=== PATIENT | male | born 1955 | race Caucasian/White ===

== ENCOUNTER 2019-10-07 11:33 | Day surgery (SDC) | payer MEDICARE, OTHER ==
[2019-09-30 11:15] LABS: ABSOLUTE BASOPHILS # (AUTO) 0.1 10^3/uL (0.0-0.2); ABSOLUTE EOSINOPHILS # (AUTO) 0.7 10^3/uL (0.0-0.6); ABSOLUTE LYMPHOCYTES (AUTO) 2.9 10^3/uL (0.5-4.7); ABSOLUTE MONOCYTES (AUTO) 1.2 10^3/uL (0.1-1.4); ABSOLUTE NEUT (AUTO) 5.8 10^3/uL (1.7-8.2); BASOPHILS % (AUTO) 1.2 % (0-2); EOSINOPHILS % (AUTO) 6.6 % (0-6); HEMOGLOBIN 16.3 g/dL (13.5-17.0); LYMPHOCYTES % (AUTO) 27.1 % (13-45); MEAN CORPUSCULAR HEMOGLOBIN 30.2 pg (27.0-33.4); MEAN CORPUSCULAR VOLUME 89 fl (80-97); MONOCYTES % (AUTO) 10.8 % (3-13); PLATELET COUNT 302 10^3/uL (150-450); RED BLOOD COUNT 5.41 10^6/uL (4.35-5.55); RED CELL DISTRIBUTION WIDTH 13.8 % (11.5-14.0); SEGMENTED NEUTROPHILS % (AUTO) 54.3 % (42-78); TOTAL CELLS COUNTED % (AUTO) 100 %; WHITE BLOOD COUNT 10.8 10^3/uL (4.0-10.5)
[2019-09-30 11:20] LABS: APPEARANCE,URINE CLEAR; BILIRUBIN,URINE NEGATIVE (NEGATIVE); COLOR,URINE YELLOW; GLUCOSE, URINE NEGATIVE (NEGATIVE); KETONES,URINE NEGATIVE (NEGATIVE); LEUKOCYTE ESTERASE,URINE NEGATIVE (NEGATIVE); NITRITE,URINE NEGATIVE (NEGATIVE); PROTEIN,URINE NEGATIVE (NEGATIVE); URINE SPECIFIC GRAVITY 1.009; UROBILINOGEN,URINE NEGATIVE mg/dL (<2.0)
[2019-09-30 11:22] LABS: INTERNATIONAL RATION (INR) 0.94; PROTHROMBIN TIME 12.6 SEC (11.4-15.4)
--- NOTE | 2019-09-30 11:22 | EKG REPORT ---
SEVERITY:- NORMAL ECG - SINUS RHYTHM : Confirmed by: Emmie Nance MD 30-Sep-2019 11:21:55
[2019-09-30 11:23] LABS: PARTIAL THROMBOPLASTIN TIME 31.1 SEC (23.5-35.8)
[~2019-10-07 11:33] MED LIST: CEFAZOLIN 1 GM/D5W RTU 1 GM/50 ML RTUPB IV ONE; CEFAZOLIN 1 GM/D5W RTU 1 GM/50 ML RTUPB IV PRN; LACTATED RINGERS 1000 ML IV PRN; LIDOCAINE 0.5% INJ-PF (5 MG/ML) 50 ML SDV SUBCUT PRN
[2019-10-07] MEDS ORDERED: ALBUTEROL SULFATE 0.083% NEB 2.5 MG/3 ML AMPUL NEB ONE (12:28)
[2019-10-07] MEDS ORDERED: FENTANYL CITRATE INJ/PF 100 MCG/2 ML AMPUL ONE (14:53)
[2019-10-07] MEDS ORDERED: MIDAZOLAM 2 MG/2 ML INJ ONE (14:53)
[2019-10-07] MEDS ORDERED: TRIAMCINOLONE ACETONIDE INJ 40 MG/1 ML VIAL ONE (14:53)
[2019-10-07] MEDS ORDERED: LIDOCAINE 1% INJ-PF (10 MG/ML) 30 ML SDV ONE (14:53)
[2019-10-07] MEDS ORDERED: PROPOFOL INJ 200 MG/20 ML VIAL IV ONE (14:53)
[2019-10-07] MEDS ORDERED: LIDOCAINE 1% INJ-PF (10 MG/ML) 30 ML SDV INJ ONE (15:17)
[2019-10-07] MEDS ORDERED: TRIAMCINOLONE ACETONIDE INJ 40 MG/1 ML VIAL INJ ONE (15:17)
[2019-10-07] MEDS ORDERED: PROMETHAZINE HCL INJ 25 MG/1 ML VIAL IV PRN ×2 (15:20)
[2019-10-07] MEDS ORDERED: DIPHENHYDRAMINE HCL 50 MG/ML VIAL IV PRN (15:20)
[2019-10-07] MEDS ORDERED: MORPHINE SULFATE 10 MG/ML INJ IV PRN (15:20)
[2019-10-07] MEDS ORDERED: MEPERIDINE HCL/PF INJ 25 MG/1 ML DISP.SYRIN IV PRN (15:20)
[2019-10-07] MEDS ORDERED: FENTANYL CITRATE INJ/PF 100 MCG/2 ML AMPUL IV PRN ×3 (15:20)
--- NOTE | 2019-10-07 16:06 | Operative Report ---
Operative Report DATE OF SURGERY: 10/07/19 PREOPERATIVE DIAGNOSIS: Lumbar spinal stenosis with neurogenic claudication POSTOPERATIVE DIAGNOSIS: same OPERATION: Minimally invasive lumbar decompression at L4-L5 SURGEON: GISSELL VILLASENOR ANESTHESIA: LMAC COMPLICATIONS: none ESTIMATED BLOOD LOSS: none INTRAOPERATIVE FINDINGS: Improved epidural spread of contrast agent following Minimally invasive lumbar decompression. PROCEDURE: DESCRIPTION OF PROCEDURE The patient was taken to the preoperative suite, informed consent was obtained from the patient, and all appropriate preoperative documentation was completed. Intravenous access was obtained and the patient was moved to the operating room. A time out was performed with the patient, nurse and attending physician present in the operative suite. Prophylactic antibiotics were administered in the form of 1 g IV Ancef preoperatively and less than one hour before incision. The patient was positioned prone and all pressure points were checked while the patient was awake. Monitored anesthesia care was subsequently induced by the anesthesia care provider. The skin overlying the target area was prepped with Chlorhexidine x 3 and sterilely draped in the usual fashion maintaining meticulous sterile technique. Local anesthesia was obtained with a total of 10 ml of preservative free 1% Lidocaine. The L4-L5 interspace was marked in the midline after identification using AP fluoroscopy. Using a 17 Gauge Tuohy needle, the epidural space was approached using intermittent AP and Lateral fluoroscopy. Access to the epidural space was attained using loss of resistance to normal saline. After negative aspiration for heme/CSF, 5mL of Omnipaque 180 was injected to delineate the posterior epidural space. At this point, attention was turned to a site previously marked for insertion of the MILD trocar. The skin was incised with buffered 1% lidocaine using a 25-gauge 3.5" spinal needle. Then incision was made using a 15 blade scalpel. Using the trocar provided by the [email or web address] medical kit the interlaminar space at L4-5 was approached. Contralateral oblique fluor oscopic guidance was utilized to ensure adequate localization of the trocar. A skin stabilizer was then placed and the stylette for the trocar was removed. A depth gauge was placed over the insurance sales producer and set to 15 mm. Subsequently a bone rongeur was introduced through the introducer and portions of the superior lamina of L5 and inferior lamina of L4 were scraped and removed. This had been done to an adequate degree the bone sculptor was inserted through the introducer and further portions of ligamentum flavum were removed. Once this had been completed improvement in epidural spread of contrast was appreciated. The introducer was removed and attention was turned to the opposite side where the procedure was performed in identical fashion. At the end of the procedure the epidural Touhy needle was injected with 80 mg of Kenalog and 2 mL of saline. Both trochars were removed and the epidural needle was removed.. The skin was closed with Dermabond and Steri-Strips. Dressings were placed. The patient tolerated the procedure well and was accompanied to PACU by anesthesia staff in stable condition. Patient will be discharged home and will follow-up within 24 hours for postoperative evaluation.
--- NOTE | 2019-10-07 16:19 | RADIOLOGY REPORT (SQ) ---
EXAM DESCRIPTION: L SPINE 2 VIEWS; NO CHG FLUORO COMPLETED DATE/TIME: 10/07/2019 4:04 pm; 10/07/2019 4:03 pm REASON FOR STUDY: MILD M48.062 SPINAL STENOSIS, LUMBAR REGION WITH NEUROGENIC AKANKSHA Z00.6 ENCNTR F OR EXAM FOR NRML CMPRSN AND CTRL IN [facility] Z79.899 OTHER CORRECTION (CURRENT) DRUG THERAPY COMPARISON: None. FLUOROSCOPY TIME: 4.3 minutes. 9 images saved to PACS. TECHNIQUE: Intra-operative images acquired during surgical procedure to evaluate progress. NUMBER OF IMAGES: 9 images. LIMITATIONS: None. FINDINGS: Images of the lower lumbar spine acquired during the procedure. IMPRESSION: IMAGE(S) OBTAINED DURING PROCEDURE. COMMENT: Quality ID [id number]: Final reports for procedures using fluoroscopy that document radiation exp osure indices, or exposure time and number of fluorographic images (if radiation exposure indices are not available) Please consult full operative report of the attending physician for description of the procedure. TECHNICAL DOCUMENTATION: JOB ID: [id number] [employer]- All Rights Reserved Reading location - IP/workstation name: [email or web address]
--- NOTE | 2019-10-07 16:19 | RADIOLOGY REPORT (SQ) ---
EXAM DESCRIPTION: L SPINE 2 VIEWS; NO CHG FLUORO COMPLETED DATE/TIME: 10/07/2019 4:04 pm; 10/07/2019 4:03 pm REASON FOR STUDY: MILD M48.062 SPINAL STENOSIS, LUMBAR REGION WITH NEUROGENIC AKANKSHA Z00.6 ENCNTR F OR EXAM FOR NRML CMPRSN AND CTRL IN [facility] Z79.899 OTHER SENIOR LIVING (CURRENT) DRUG THERAPY COMPARISON: None. FLUOROSCOPY TIME: 4.3 minutes. 9 images saved to PACS. TECHNIQUE: Intra-operative images acquired during surgical procedure to evaluate progress. NUMBER OF IMAGES: 9 images. LIMITATIONS: None. FINDINGS: Images of the lower lumbar spine acquired during the procedure. IMPRESSION: IMAGE(S) OBTAINED DURING PROCEDURE. COMMENT: Quality ID [id number]: Final reports for procedures using fluoroscopy that document radiation exp osure indices, or exposure time and number of fluorographic images (if radiation exposure indices are not available) Please consult full operative report of the attending physician for description of the procedure. TECHNICAL DOCUMENTATION: JOB ID: [id number] [employer]- All Rights Reserved Reading location - IP/workstation name: [email or web address]
[2019-10-07 18:11] VITALS: BP 116/69
== END 2019-10-07 17:50 | disposition home or self-care (01) ==
LOC: OROUT 11:33
PROVIDERS: ATTEND Pain Medicine Interventional Pain Medicine
DX: M48.062 Spinal stenosis, lumbar region with neurogenic claudication (principal); Z00.6 Encounter for examination for normal comparison and control in clinical research program; Z79.899 Other long term (current) drug therapy; Z79.01 Long term (current) use of anticoagulants; K21.9 Gastro-esophageal reflux disease without esophagitis; M06.9 Rheumatoid arthritis, unspecified; I25.10 Atherosclerotic heart disease of native coronary artery without angina pectoris; J44.9 Chronic obstructive pulmonary disease, unspecified; I25.2 Old myocardial infarction; F17.210 Nicotine dependence, cigarettes, uncomplicated
CPT/HCPCS: 93005; 36415; 85025; 85610; 85730; 81001; 72100; 93010; 94640; 0275T; J2250; J0690; J3010; J3490; J3301; J2704; A9270; C1889; Q9966